=== PATIENT | male | born 1990 | race Caucasian/White ===

== ENCOUNTER → 2024-09-09 | Outpatient (CLI) | payer OTHER, SELFPAY ==
--- NOTE | 2024-09-09 10:03 | ECHOD_ITS ---
Reason For Study: TACHYCARDIA Procedure This was a 2D Doppler, Color Flow transthoracic echocardiogram. Exam performed in department. Left Ventricle Normal LV size. The estimated ejection fraction is 55 %. No evidence for diastolic dysfunction. No regional wall motion abnormalities noted. Right Ventricle Normal RV size. Normal systolic function. Atria The left and right atria are normal. No doppler evidence for ASD. Mitral Valve There is no mitral valve stenosis. Trivial mitral valve insufficiency. Tricuspid Valve There is no tricuspid stenosis. Trivial tricuspid valve insufficiency. Unable to estimate RV systolic pressure due to insufficient tricuspid regurgitant envelope. Aortic Valve Trisinus/trileaflet aortic valve. There is no aortic stenosis. No aortic valve insufficiency. Pulmonic Valve There is no pulmonic valvular stenosis. No pulmonic valve insufficiency. Great Vessels Normal aortic root. Pericardium/Pleural No pericardial effusion. MMode/2D Measurements & Calculations LVIDd: 5.0 cm IVSd: 0.89 cm LVOT diam: 2.1 cm LVIDs: 3.0 cm LVPWd: 0.74 cm LVOT area: 3.5 cm2 RVDd: 3.7 cm FS: 39.6 % asc Aorta Diam: 2.7 cm LAV(MOD-bp): 46.4 ml LVAd ap4: 34.5 cm2 LAV(MOD-bp) Indexed: 21.3 ml/m2 LVLd ap4: 8.8 cm LAV(MOD-sp2): 61.7 ml EDV(MOD-sp4): 111.3 ml LAV(MOD-sp4): 35.6 ml EDV(sp4-el): 114.6 ml LVAs ap4: 18.7 cm2 LVLs ap4: 7.2 cm ESV(MOD-sp4): 40.0 ml ESV(sp4-el): 41.3 ml EF(MOD-sp4): 64.0 % EF(sp4-el): 64.0 % LVAd ap2: 28.6 cm2 SV(MOD-sp4): 71.2 ml SV(MOD-sp2): 47.8 ml LVLd ap2: 8.5 cm SI(MOD-sp4): 32.8 ml/m2 SI(MOD-sp2): 22.0 ml/m2 EDV(MOD-sp2): 79.6 ml EDV(sp2-el): 81.6 ml LVAs ap2: 16.3 cm2 LVLs ap2: 6.7 cm ESV(MOD-sp2): 31.8 ml ESV(sp2-el): 33.6 ml EF(MOD-sp2): 60.0 % SV(sp4-el): 73.3 ml Ao sinus diam: 2.[address] Junction: 2.3 cm LA dimension(2D): 3.5 cm LA A4 area: 15.3 cm2 RA A4 area: 16.9 cm2 TAPSE: 1.8 cm Time Measurements MV dec time: 0.15 sec Doppler Measurements & Calculations MV E max pop: 71.3 cm/sec Lat Peak E' Pop: 21.2 cm/sec Med Peak E' Pop: 13.3 cm/sec MV A max pop: 38.7 cm/sec E/E' lat: 3.4 E/E' med: 5.3 MV E/A: 1.8 MV dec slope: 468.0 cm/sec2 Ao V2 max: 118.9 cm/sec LV V1 max: 115.8 cm/sec Ao max P.7 mmHg LV V1 max P.4 mmHg Ao V2 mean: 83.2 cm/sec LV V1 mean P.7 mmHg Ao mean P.2 mmHg LV V1 mean: 74.7 cm/sec Ao V2 VTI: 24.9 cm LV V1 VTI: 24.5 cm AV (velocity ratio): 0.98 WILIAN(I,D): 3.4 cm2 WILIAN(V,D): 3.4 cm2 SV(LVOT): 85.7 ml PA V2 max: 100.3 cm/sec TR max pop: 219.1 cm/sec TR max P.2 mmHg ECHO/Echo Complete Interpretation Summary The estimated ejection fraction is 55 %. No evidence for diastolic dysfunction. Trivial mitral valve insufficiency. Ordering Physician: Khalif Goldstein Referring Physician: Khalif Goldstein Performed By: Ernestina Sarkar RDCS
--- NOTE | 2024-09-09 10:32 | EKG12_ITS ---
Test Reason : MED EVAL Blood Pressure : */* mmHG Vent. Rate : 74 BPM Atrial Rate : 74 BPM P-R Int : 156 ms QRS Dur : 102 ms QT Int : 370 ms P-R-T Axes : 83 91 29 degrees QTcB Int : 410 ms Normal sinus rhythm with sinus arrhythmia Rightward axis Borderline ECG Confirmed by Eloy Dyer ([id number]), primer expeditor and drier ANTOINE PILLAI ([id number]) on 09/10/2024 5:57:00 AM Referred By: Khalif Goldstein Confirmed By: Eloy Dyer
== END | disposition home or self-care (01) ==
PROVIDERS: PCP Internal Medicine; Referring Provider Chiropractor; Visit Provider Chiropractor
DX: R00.0 Tachycardia, unspecified (principal)
CPT/HCPCS: 93005; 93306